=== PATIENT | female | born 1965 | race Caucasian/White ===

== ENCOUNTER 2017-03-11 05:50 | Day surgery (SDC) | payer OTHER ==
[~2017-03-11] VITALS: Ht 167.6 cm; Wt 84.5 kg
[~2017-03-11 05:50] MED LIST: ACET-784 PO; DEXAMETHASONE SOD PHOS 4 MG/ML VIAL IVP ONE; KETOROLAC TROMETHAMINE 60 MG/2 ML VIAL IM ONE; LIDOCAINE HCL/PF 2% 5 ML VIAL IM ONE; MELO-273 PO; METOPROLOL TARTRATE 5 MG/5 ML VIAL IVP ONE; MULT-1251 PO; OMEG100019 PO; ONDANSETRON HCL 4 MG/2 ML VIAL IVP ONE; PROPOFOL 1% 20 ML VIAL IVP ONE; SOY155CA PO
[2017-03-11] MEDS ORDERED: RINGERS SOLUTION,LACTATED 1,000 ML IV ONE ×2 (05:57→06:45)
[2017-03-11] MEDS ORDERED: CeFAZolin 1 GM/DEXTROSE 50 ML IV ONE ×2 (05:57→06:00)
[2017-03-11] MEDS: BUPIVACAINE HCL/PF 0.5% 30 ML VIAL ONE ×2 (07:40→07:56)
[2017-03-11] MEDS: LIDOCAINE HCL/PF 1% 30 ML VIAL ONE ×2 (07:40→07:58)
[2017-03-11] MEDS ORDERED: MIDAZOLAM HCL 2 MG/2 ML VIAL IVP ONE (23:52)
[2017-03-11] MEDS ORDERED: FentaNYL CITRATE-PF 100 MCG/2 ML VIAL IVP ONE (23:52)
== END 2017-03-11 09:35 | disposition home or self-care (01) ==
LOC: SURGERY 05:50
PROVIDERS: ATTEND Podiatrist Foot & Ankle Surgery
DX: M89.371 Hypertrophy of bone, right ankle and foot (principal); Z88.8 Allergy status to other drugs, medicaments and biological substances; Z98.890 Other specified postprocedural states
CPT/HCPCS: 28124; 73630; 88305; 88311; J0690; J1100; J1885; J2250; J2405; J2704; J3010; J3490 ×4; J7120